=== PATIENT | female | born 1990 | race Caucasian/White ===

== ENCOUNTER → 2016-03-08 | Outpatient (CLI) | payer OTHER ==
[~2016-03-08] MED LIST: ACET50TA PO; BENA25TA4 PO; COLA100C PO; MOM30SS PO; RANI15TA PO; TUMS500C PO; ZITHTAB PO
--- NOTE | 2016-03-08 16:37 | REP ---
Obstetric ultrasound for anatomy: There is a single intrauterine gestation in a vertex presentation. There is movement and cardiac activity, the heart rate is 147 beats per minute. The placenta is posterior. There is no previa or abruptio. The placenta is grade zero maturity. Subjectively the amniotic fluid volume is normal. Cervix is 5.0 cm length. By today's ultrasound gestational age is 20 weeks 1 day with an MARINA of 07/25/2016. weight is 342 grams ( 0 pounds, 12 ounces). This is the 53rd percentile for 20 weeks 1 day. The following anatomic structures are identified and unremarkable.: Cranium, cavum septum pellucidum, cerebellum, face/facial profile, lungs, four-chamber heart, cardiac right and left ventricular outflow tracts, diaphragm, stomach, cord insertion, three-vessel cord, kidneys, bladder, upper lower extremities. There is suboptimal visualization of the spine. A followup study dedicated to the spine might be considered. Otherwise, there are no anomalies. Signed by Andrés Germain MD 03/08/2016 04:28 P
== END | disposition home or self-care (01) ==
LOC: M WHC 14:29
PROVIDERS: ATTEND Obstetrics & Gynecology
DX: Z34.82 Encounter for supervision of other normal pregnancy, second trimester (principal); Z36 Encounter for antenatal screening of mother; Z3A.20 20 weeks gestation of pregnancy

== ENCOUNTER → 2016-04-17 | Outpatient (CLI) | payer OTHER ==
--- NOTE | 2016-04-17 17:10 | REP ---
OB ULTRASOUND: REASON FOR EXAM: Followup spine and choroid plexus. COMPARISON EXAM: 03/08/2016 Multiple ultrasonographic images of the gravid uterus show a single living intrauterine gestation in the transverse head to maternal right position. Doppler interrogation of the heart shows a heart rate of 147 beats per minute. The placenta is posterior fundal and not low lying. The subjective amniotic fluid volume is within normal limits. The cervix measures 3.6 cm in length and is closed. The choroid plexus and spine were seen normally, completing the anatomical screen. BPD 6.3 cm = 25 weeks 2 day HC 23.6 cm = 25 weeks 5 days AC 21.2 cm = 25 weeks 5 days FL 4.9 cm = 26 weeks 2 days The estimated weight is 868 grams which is at the 46th percentile for a 25 week 6 day gestational age. IMPRESSION: Single living intrauterine gestation as described above with an estimated gestational age of 25 weeks 3 days via composite criteria and an estimated date of delivery of 07/28/2016. No anomalies were detected.
== END ==
LOC: M WHC 14:03
PROVIDERS: ATTEND Obstetrics & Gynecology
DX: Z34.82 Encounter for supervision of other normal pregnancy, second trimester (principal); Z36 Encounter for antenatal screening of mother; Z3A.25 25 weeks gestation of pregnancy

== ENCOUNTER → 2016-05-13 | Outpatient (CLI) | payer OTHER ==
[2016-05-13 19:44] LABS: BASO % 0.1 % (0.0-1.0); EOS # 0.1 K/mm3 (0.0-0.50); EOS % 1.6 % (0.0-3.0); LARGE UNSTAINED CELL # 0.1 K/mm3 (0.0-0.4); LARGE UNSTAINED CELL % 1.1 % (0.0-4.0); LYMPH # 1.5 K/mm3 (1.5-6.5); LYMPH % 18.4 % (24.0-44.0); MEAN CORPUSCULAR HGB CONC 32.8 g/dl (32.0-36.5); MEAN CORPUSCULAR VOLUME 85.2 fl (80.0-96.0); MONO # 0.4 K/mm3 (0.0-0.8); MONO % 4.4 % (0.0-5.0); NEUTROPHILS # 6.1 K/mm3 (1.8-7.7); NEUTROPHILS % 74.5 % (36.0-66.0); PLATELET COUNT, AUTOMATED 273 k/mm3 (150-450); RED CELL DISTRIBUTION WIDTH 13.4 % (11.5-14.5); WHITE BLOOD COUNT 8.2 K/mm3 (4.0-10.0)
== END ==
LOC: M SMT 12:58
PROVIDERS: ATTEND Obstetrics & Gynecology
DX: Z34.83 Encounter for supervision of other normal pregnancy, third trimester (principal)

== ENCOUNTER → 2016-05-20 | Outpatient (CLI) | payer OTHER ==
[~2016-05-20] MED LIST changes: -COLA100C PO; +COLA100C3 PO
== END ==
LOC: M LAB 07:32
PROVIDERS: ATTEND Obstetrics & Gynecology
DX: Z34.83 Encounter for supervision of other normal pregnancy, third trimester (principal); Z36 Encounter for antenatal screening of mother; Z3A.00 Weeks of gestation of pregnancy not specified

== ENCOUNTER → 2016-06-25 | Outpatient (REF) | payer OTHER | LOC: M LAB REF 16:51 | PROVIDERS: ATTEND Obstetrics & Gynecology | DX: O24.410 Gestational diabetes mellitus in pregnancy, diet controlled (principal) ==

== ENCOUNTER 2016-07-22 15:59 | Inpatient (IN) | payer OTHER ==
[~2016-07-22] VITALS: Ht 165.1 cm; Wt 91.0 kg
[2016-07-22 16:23] VITALS: BP 115/73
[2016-07-22 17:46] VITALS: BP 109/70
[2016-07-22] MEDS: miSOPROStol 50 MCG 1/2 TAB (S0191) PO SCH ×2 (17:56→21:49)
[2016-07-22 18:49] LABS: MEAN CORPUSCULAR HEMOGLOBIN 26.2 pg (27.0-33.0); MEAN CORPUSCULAR HGB CONC 32.9 g/dl (32.0-36.5); MEAN CORPUSCULAR VOLUME 79.6 fl (80.0-96.0); RED CELL DISTRIBUTION WIDTH 14.1 % (11.5-14.5); WHITE BLOOD COUNT 6.7 K/mm3 (4.0-10.0)
[2016-07-22 18:54] VITALS: BP 110/74
--- NOTE | 2016-07-22 20:39 | HPE ---
DATE OF ADMISSION: 07/22/2016 REASON FOR ADMISSION: Induction of labor for gestational diabetes. HISTORY OF PRESENT ILLNESS: Mrs. Ewing is a 25-year-old 2, para 1, who presented at 39 weeks 5 days estimated gestational age by her last menstrual period and confirmed by first trimester ultrasound for induction of labor for gestational diabetes. course has been remarkable for A1 gestational diabetes. She initiated her care in the first trimester and has been appropriate throughout. Her gestational diabetes has been moderately controlled with diet. PAST MEDICAL HISTORY: None. PAST SURGICAL HISTORY: She has had an eye surgery as a child. PAST OBSTETRICAL HISTORY: She is a 2, para 1. She has had one term vaginal delivery. She has proven to 8 pounds 3 ounces. MEDICATIONS: - vitamins ALLERGIES: No known drug allergies but allergy to LATEX. SOCIAL HISTORY: She denies any alcohol, tobacco or drug use during the . PHYSICAL EXAMINATION: VITAL SIGNS: Stable. She is afebrile. GENERAL APPEARANCE: Well appearing. No acute distress. She has a category 1 heart rate tracing. No contractions on tocodynamometer. LUNGS: Clear to auscultation bilaterally. CARDIOVASCULAR: Heart has regular rhythm. ABDOMEN: Soft, gravid, nontender. Estimated weight 3500 grams. CERVICAL EXAM: She is 1 cm dilated, 50% effaced, -3 station. LABORATORY DATA: Blood type is O positive, antibody screen is negative. Rubella immune. RPR nonreactive. Hepatitis surface antigen negative. HIV negative. Hepatitis C is nonreactive. Chlamydia and Gonorrhea screens are negative. She had an elevated 1 hour Glucola and an abnormal glucose tolerance test. ASSESSMENT: 1. Mrs. Ewing is a 25-year-old 2, para 1 who presented at 39 weeks 5 days estimated gestational age by her last menstrual period and confirmed by first trimester ultrasound, here for induction of labor for gestational diabetes. 2. Reassuring status. PLAN: 1. Admit to labor and delivery. CBC, RPR, type and screen. 2. Patient has been thoroughly counseled regarding induction of labor and discussed medications, as well as procedures performed in labor and delivery. She has also been verbally consented for emergency surgery, blood products, anesthesia and desires to proceed with admission. 3. We will initiate her induction with 50 mcg of oral misoprostol.
[2016-07-23] VITALS (14 sets, daily range): BP systolic 102–132; BP diastolic 58–84
[2016-07-23] MEDS: miSOPROStol 50 MCG 1/2 TAB (S0191) PO SCH ×2 (02:17→06:04)
[2016-07-23] MEDS ORDERED: LR 1,000 ML IV SCH (08:24)
[2016-07-23] MEDS ORDERED: OXYTOCIN DRIP 30 UNITS in APPROPRIATE DILUENT 1 EA IV SCH ×2 (08:30→11:21)
[2016-07-23] MEDS: PRENATAL VITAMIN TAB PO SCH (09:00)
[2016-07-23] MEDS ORDERED: CALCIUM CARBONATE 500 MG CHEW U/D PO PRN (09:00)
[2016-07-23] MEDS ORDERED: FENTANYL 2MCG/ML ROPIVACAINE 0.2% IN 0.9% NACL 200ML IVBAG As Ordered ONE (10:34)
[2016-07-23] MEDS ORDERED: DIBUCAINE 1% OINTMENT 30GM TOP PRN (11:30)
[2016-07-23] MEDS ORDERED: RHOGAM 300 MCG (1500 IU) INJ (J2790) IM SCH (11:30)
[2016-07-23] MEDS ORDERED: ANUSOL HC CREAM 30GM TOP PRN (11:30)
[2016-07-23] MEDS ORDERED: DOCUSATE SODIUM 100 MG CAP PO PRN (11:30)
[2016-07-23] MEDS ORDERED: MEASLES,MUMPS,RUBELLA VACCINE INJ (MMR-II) (90707) SC SCH (11:30)
[2016-07-23] MEDS ORDERED: MOM 30ML SUSPENSION UDC PO PRN (11:30)
[2016-07-23] MEDS ORDERED: METHYLERGONOVINE MALEATE 0.2 MG TAB PO PRN (11:30)
--- NOTE | 2016-07-23 11:46 | DN ---
DATE OF DELIVERY: 07/23/2016 TIME OF : 1102. GENDER: Female. SCORES: 9 and 10. WEIGHT: Was 3208 grams or 7 pounds 1 ounce. ANESTHESIA: None. LACERATIONS: None. COUNTS: Five laparotomy sponges accounted for prior to the delivery. DELIVERY NOTE: On 07/23/2016, at 1102 hours, Mrs. Ewing, a 25-year-old, 2, now para 2, had a spontaneous vaginal delivery of a liveborn female infant, scores 9 and 10. Weight 7 pounds 1 ounce. Head was delivered occipitoposterior (OP) over intact perineum, followed by delivery of left anterior shoulder, right posterior shoulder, and corpus. The infant was handed to mother with a good cry. Cord was clamped times two and was cut by the father of the baby under my direction. Cord blood was then obtained. The placenta was then drained and delivered grossly intact. A premix bag of 500 mL of normal saline with 30 units of Pitocin was then bolused, along with uterine massage until the uterus was firm. On inspection, the cervix, vagina, and perineum were grossly intact and hemostatic. Mother and baby recovering in stable condition.
[2016-07-23] MEDS: IBUPROFEN 800 MG TAB PO PRN ×2 (13:45→22:36)
[2016-07-23] MEDS: ACETAMINOPHEN 500 MG TAB PO PRN (16:32)
[2016-07-24] MEDS: ACETAMINOPHEN 500 MG TAB PO PRN (03:46)
[2016-07-24 06:00] VITALS: BP 110/53
[2016-07-24] MEDS: PRENATAL VITAMIN TAB PO SCH (09:00)
[2016-07-24] MEDS: IBUPROFEN 800 MG TAB PO PRN ×2 (10:12→19:28)
[2016-07-24 17:34] VITALS: BP 132/69
[2016-07-25 05:59] VITALS: BP 111/70
[2016-07-25] MEDS ORDERED: ACET50TA PO (07:45)
[2016-07-25] MEDS ORDERED: PRENTAB9 PO (07:45)
[2016-07-25] MEDS ORDERED: IBUP-1114 PO (07:48)
[2016-07-25] MEDS: PRENATAL VITAMIN TAB PO SCH (08:30)
== END 2016-07-25 10:13 | disposition home or self-care (01) | DRG 560 ==
LOC: M LDI 15:59 → M OBS 07-23 14:17
PROVIDERS: ADMIT Obstetrics & Gynecology; ATTEND Obstetrics & Gynecology
PROC: 10E0XZZ Delivery of Products of Conception, External Approach (ICD-10-PCS; principal; 2016-07-23)
DX: O24.420 Gestational diabetes mellitus in childbirth, diet controlled (principal); Z37.0 Single live birth; Z3A.39 39 weeks gestation of pregnancy

== ENCOUNTER → 2016-09-11 | Outpatient (CLI) | payer OTHER ==
[~2016-09-11] MED LIST changes: +BENA25CA4 PO; -COLA100C3 PO; +COLA100C5 PO; +IBUP-1114 PO; +PRENTAB9 PO
== END ==
LOC: M LAB 10:55
PROVIDERS: ATTEND Obstetrics & Gynecology
DX: O24.410 Gestational diabetes mellitus in pregnancy, diet controlled (principal); Z36 Encounter for antenatal screening of mother; Z3A.00 Weeks of gestation of pregnancy not specified

== ENCOUNTER 2016-11-08 11:51 | Day surgery (SDC) | payer OTHER ==
[~2016-11-08] VITALS: Ht 165.1 cm; Wt 88.5 kg
[2016-11-08] MEDS ORDERED: LR 1,000 ML IV ONE (12:00)
[2016-11-08] MEDS ORDERED: LIDOCAINE 1% MDV 20ML VIAL SQ PRN (12:00)
[2016-11-08 12:26] LABS: MEAN CORPUSCULAR HEMOGLOBIN 27.4 pg (27.0-33.0); MEAN CORPUSCULAR HGB CONC 33.4 g/dl (32.0-36.5); MEAN CORPUSCULAR VOLUME 81.8 fl (80.0-96.0); RED CELL DISTRIBUTION WIDTH 13.7 % (11.5-14.5); WHITE BLOOD COUNT 5.2 K/mm3 (4.0-10.0)
[2016-11-08 12:48] LABS: CONTROL LINE HCG INT CTR LINE PRESENT
[2016-11-08] MEDS ORDERED: ONDANSETRON 4MG/2ML VIAL (J2405) As Ordered ONE (13:03)
[2016-11-08] MEDS ORDERED: ROCURONIUM BROMIDE 50 MG/5 ML VIAL/SYRINGE As Ordered ONE (13:03)
[2016-11-08] MEDS ORDERED: PROPOFOL 200 MG/20 ML VIAL As Ordered ONE (13:03)
[2016-11-08] MEDS ORDERED: LIDOCAINE 2% INJ 100 MG/5 ML SDV (FOR ANES.) As Ordered ONE (13:03)
[2016-11-08] MEDS ORDERED: fentaNYL 100 MCG/2 ML INJECTION (J3010) As Ordered ONE (13:03)
[2016-11-08] MEDS ORDERED: MIDAZOLAM INJ 2 MG/2 ML VIAL (J2250) As Ordered ONE (13:03)
[2016-11-08] MEDS ORDERED: BUPIVACAINE HCL 0.25% 30 ML VIAL As Ordered ONE (13:26)
[2016-11-08] MEDS ORDERED: NEOSTIGMINE 10 MG/10 ML VIAL (J2710) As Ordered ONE (14:24)
[2016-11-08] MEDS ORDERED: HYDROmorphone HCL 2 MG/ML 1ML VIAL (J1170) As Ordered ONE (14:24)
[2016-11-08] MEDS ORDERED: GLYCOPYRROLATE INJ 0.2 MG/ML 2 ML VIAL As Ordered ONE (14:24)
[2016-11-08] MEDS ORDERED: fentaNYL 100 MCG/2 ML INJECTION (J3010) IV PRN (15:15)
[2016-11-08] MEDS ORDERED: ONDANSETRON 4MG/2ML VIAL (J2405) IV PRN (15:15)
[2016-11-08] MEDS ORDERED: PERCOCET 5MG/325MG TAB PO PRN ×2 (15:15)
[2016-11-08] MEDS ORDERED: LR 1,000 ML IV SCH (15:15)
--- NOTE | 2016-11-08 15:37 | RO ---
DATE OF PROCEDURE: 11/08/2016 PREOPERATIVE DIAGNOSIS: Satisfied parity with undesired fertility. POSTOPERATIVE DIAGNOSIS: Satisfied parity with undesired fertility. PROCEDURE: Laparoscopic bilateral tubal ligation using Filshie clips. SURGEON: Arline Manley MD EMR ANALYST: Tristian Munoz [facility]. ANESTHESIA: General endotracheal anesthesia. ESTIMATED BLOOD LOSS: 5 mL. INTRAVENOUS FLUIDS: 900 mL. URINE OUTPUT: 200 mL. SPECIMENS: None. PREOPERATIVE ANTIBIOTICS: None. OPERATIVE FINDINGS: Patient with normal appearing uterus, bilateral adnexa. Appendix is visualized and appeared to be normal with normal appearing liver edge. DESCRIPTION OF OPERATION: After informed consent was obtained and written content was reviewed, the patient was then brought to the operating room where general endotracheal anesthesia was obtained. She was then placed in lithotomy position and was prepped and draped in normal sterile fashion. A time out in the operating room was then performed identifying the patient, the procedure to be performed, as well as drug allergies. A bivalved speculum was then placed revealing the cervix. The anterior lip of the cervix was grasped with a single tooth tenaculum. A Hulka tenaculum was then advanced through the cervical os to the level of the fundus for means to manipulate the uterus. The single tooth tenaculum and speculum was then removed. A Maldonado catheter was then placed and set to gravity. Gloves were changed and attention was turned to the patient's abdomen where 0.25% Marcaine was infused in the umbilical region. This area was incised and a 5 mm trocar and sleeve was advanced through this incision. The laparoscope was then replaced revealing intraabdominal placement. A pneumoperitoneum was then obtained with CO2 gas. The abdomen was then surveyed with the above noted findings. Next, a second trocar was placed, this was 2 cm above the pubis symphysis in the midline. This area was infused with 0.25% Marcaine. Incision was made in this area. An 8 mm trocar and sleeve was advanced through this incision under direct visualization. Next, using a Filshie clip applicator, a Filshie clip was applied in the mid isthmic portion of the fallopian tube with good blanching noted. The fallopian tube was followed out to the fimbriated end prior to application of Filshie clip. In a similar fashion the right fallopian tube was followed out to the fimbriated end, the Filshie clip applicator was reloaded and a Filshie clip was then applied to the mid isthmic portion of that right fallopian tube with good blanching noted. Instruments were then removed from the patient's abdomen. The pneumoperitoneum was then released. Trocars were removed. Incisions were closed with #4-0 Monocryl and dressed with Dermabond. The Maldonado catheter was then removed. The Hulka tenaculum was removed. Tenaculum sites were inspected and noted to be hemostatic. The patient was then taken out of lithotomy position and was awakened from general anesthesia and taken to recovery in stable condition. Counts were correct.
[2016-11-08] MEDS ORDERED: KETOROLAC 30 MG/ML VIAL (J1885) IV SCH (16:00)
[2016-11-08 16:10] VITALS: BP 115/69
== END 2016-11-08 18:00 | disposition home or self-care (01) ==
LOC: M SDC 11:51
PROVIDERS: ATTEND Obstetrics & Gynecology
DX: Z30.2 Encounter for sterilization (principal); K58.9 Irritable bowel syndrome, unspecified; K21.9 Gastro-esophageal reflux disease without esophagitis; M41.9 Scoliosis, unspecified; G43.909 Migraine, unspecified, not intractable, without status migrainosus; K82.9 Disease of gallbladder, unspecified; J30.2 Other seasonal allergic rhinitis; Z86.19 Personal history of other infectious and parasitic diseases; Z79.899 Other long term (current) drug therapy; Z91.040 Latex allergy status; Z91.018 Allergy to other foods

== ENCOUNTER → 2017-01-07 | Outpatient (REF) | payer OTHER | LOC: M LAB REF 17:31 | PROVIDERS: ATTEND Obstetrics & Gynecology | DX: R87.810 Cervical high risk human papillomavirus (HPV) DNA test positive (principal); R87.610 Atypical squamous cells of undetermined significance on cytologic smear of cervix (ASC-US) ==

== ENCOUNTER → 2018-05-12 | Outpatient (REF) | payer OTHER ==
[~2018-05-12] MED LIST changes: -ACET50TA PO; +MAPA500T2 PO
== END ==
LOC: M LAB REF 17:54
PROVIDERS: ATTEND Obstetrics & Gynecology
DX: Z12.4 Encounter for screening for malignant neoplasm of cervix (principal)

== ENCOUNTER → 2018-08-10 | Outpatient (REF) | payer OTHER ==
[2018-08-10 17:32] LABS: URINE PREG TEST NEGATIVE (NEGATIVE)
[2018-08-10 17:40] LABS: APPEARANCE, URINE CLOUDY (CLEAR); BACTERIA, URINE AUTO 3+ (NEGATIVE); BILIRUBIN, URINE AUTO NEGATIVE (NEGATIVE); BLOOD, URINE BLOOD 2+ (NEGATIVE); COLOR, URINE YELLOW (YELLOW); GLUCOSE, URINE (UA) AUTO NEGATIVE (NEGATIVE); KETONE, URINE AUTO NEGATIVE (NEGATIVE); LEUKOCYTE ESTERASE, URINE AUTO 3+ (NEGATIVE); MUCUS, URINE SMALL (NEGATIVE); NITRITE, URINE AUTO NEGATIVE (NEGATIVE); PROTEIN, URINE AUTO 1+ mg/dL (NEGATIVE); RBC, URINE AUTO 54 /HPF (0-3); SPECIFIC GRAVITY URINE AUTO 1.016 (1.002-1.035); SQUAMOUS EPITHELIAL CELL UR AU 23 /HPF (0-6); UROBILINOGEN, URINE AUTO 0.2 mg/dL (0.0-2.0); WBC, URINE AUTO 155 /HPF (0-3)
== END ==
LOC: M SFHCCAPE 13:24
PROVIDERS: ATTEND Physician Assistant
DX: R30.0 Dysuria (principal)

== ENCOUNTER → 2019-07-13 | Outpatient (REF) | payer OTHER | LOC: M PLALAB 13:34 | PROVIDERS: ATTEND Obstetrics & Gynecology | DX: Z01.419 Encounter for gynecological examination (general) (routine) without abnormal findings (principal) ==

== ENCOUNTER → 2023-04-16 | Outpatient (REF) | payer OTHER ==
[2023-04-16 17:47] LABS: BASO % 0.7 % (0.0-1.0); EOS # 0.4 10^3/uL (0.0-0.5); EOS % 8.6 % (0.0-3.0); HEMATOCRIT 38.4 % (36.0-47.0); HEMOGLOBIN 12.5 g/dl (12.0-15.5); LYMPH # 1.3 10^3/uL (1.5-5.0); LYMPH % 29.8 % (24.0-44.0); MEAN CORPUSCULAR HEMOGLOBIN 29.6 pg (27.0-33.0); MEAN CORPUSCULAR HGB CONC 32.6 g/dl (32.0-36.5); MEAN CORPUSCULAR VOLUME 90.8 fl (80.0-96.0); MONO # 0.5 10^3/uL (0.0-0.8); MONO % 10.5 % (2.0-8.0); NEUTROPHILS # 2.2 10^3/uL (1.5-8.5); NEUTROPHILS % 50.2 % (36.0-66.0); PLATELET COUNT, AUTOMATED 265 10^3/uL (150-450); RED BLOOD COUNT 4.23 10^6/uL (4.00-5.40); WHITE BLOOD COUNT 4.3 10^3/uL (4.0-10.0)
[2023-04-16 18:00] LABS: ALBUMIN 3.6 G/DL (3.2-5.2); ALKALINE PHOSPHATASE 55 U/L (46-116); ALT/SGPT 20 U/L (7.0-40); AST/SGOT 14 U/L (<34); BILIRUBIN,TOTAL 0.5 MG/DL (0.3-1.2); BLOOD UREA NITROGEN 11 MG/DL (9-23); CALCIUM LEVEL 8.7 MG/DL (8.5-10.1); CARBON DIOXIDE LEVEL 24 MMOL/L (20-31); CHLORIDE LEVEL 109 MMOL/L (98-107); CREATININE FOR GFR 0.65 MG/DL (0.55-1.30); GLOMERULAR FILTRATION RATE > 60.0 (>60); GLUCOSE, FASTING 84 MG/DL (60-100); POTASSIUM SERUM 4.4 MMOL/L (3.5-5.1); SODIUM LEVEL 142 MMOL/L (136-145); TOTAL PROTEIN 6.5 G/DL (5.7-8.2)
== END ==
LOC: M SFHCCAPE 09:12
PROVIDERS: ATTEND Physician Assistant Medical
DX: F41.1 Generalized anxiety disorder (principal)